=== PATIENT | male | born 1980 | race Caucasian/White ===

== ENCOUNTER 2020-02-23 02:15 | Outpatient (CLI) | payer OTHER, SELFPAY ==
[2020-02-23 18:35] LABS: SARS-CoV-2 RNA PCR Positive
== END 2020-02-23 02:16 | disposition home or self-care (01) ==
LOC: ANHCOVIDDT 02:15
PROVIDERS: PCP Internal Medicine; Visit Provider Surgery
DX: Z01.812 Encounter for preprocedural laboratory examination (principal); U07.1 COVID-19
CPT/HCPCS: 87635; C9803; U0003

== ENCOUNTER 2020-02-26 00:16 | Day surgery (SDC) | payer OTHER, SELFPAY ==
[2020-02-17 14:41] VITALS: BMI 29.2
--- NOTE | 2020-02-25 19:12 | PM.SD ---
Same Day Admit/Disch: HPI History of Present Illness Chief complaint: umbilical hernia Narrative: Lucian Hurley is a 39 year old male with a bulge and discomfort at the umbilicus. Patient had positive COVID PCR test preoperatively. He had symptomatic viral illness which resolved over 30 days ago. Symptoms were mild and included loss of taste and smell. He is taken to surgery now for repair of umbilical hernia. [facility] Surgical History Surgical History (Updated 02/26/20 @ 12:33 by Macho Moeller MD) H/O inguinal hernia repair Family History Family History Unknown Diabetes mellitus Unknown Heart disease Grandparent Malignant neoplasm of prostate Social History Social History Smoking status: Never smoker Tobacco type: cigarettes Alcohol intake: current Alcohol use details: weekends Living arrangements: with family Additional occupation/education comments: [employer] Gender identity (if verbalized by the patient): Male Spiritual care concerns: No Same Day Admit/Disch: Med Pre-admit Medications Home Medications Medication Instructions Recorded Confirmed Type No Home Medications 01/08/20 02/26/20 History hydrocodone-acetaminophen 1 - 2 tablet PO Q6H PRN #7 tablet 02/26/20 Rx ketorolac 10 mg PO Q6H 4 Days #16 tablet 02/26/20 Rx Exam Const: General: comfortable, no acute distress, alert and awake HENMT: Head: normocephalic and atraumatic Mouth: Yes Normal oral and palatal mucosa present Eyes: Conjunctivae: conjunctivae normal Pupils: Equal, round and reactive pupils present EOM: EOMs intact bilaterally Neck: Neck: normal visual inspection, no lymphadenopathy and nontender Resp: Effort & Inspection: normal respiratory effort Auscultation: clear to auscultation bilaterally Cardio: Rate: regular rate Rhythm: regular rhythm Heart sounds: no gallops, no murmurs and no rubs GI: Inspection: non-distended and visible herniation (umbilical) GI Palp: Yes Soft to palpation, Yes Tenderness to palpation present (GI), No Hepatomegaly present, No Splenomegaly present and Yes Hernia present (small reducible umbilical hernia, 6 mm defect) Auscultation: normal bowel sounds Skin: Lesions: no lesions Rashes: no rashes Neuro: General: no focal motor deficits and CN's II-XI intact bilaterally Cranial nerves: Yes Equal, round and reactive pupils present, Yes Bilaterally intact EOM present, Yes facial symmetry and Yes Midline tongue present Speech: normal speech Motor exam (neuro): 5/5 motor strength present throughout and Motor abnormalities not present Extrem: General: no clubbing, cyanosis or edema and edema Psych: Affect: normal affect Thought process: Normal thought process present Insight: Good insight present (Psych) DS: Summary Hospital Course Hospital Course: Patient was able to go home after outpatient surgery. Time Spent with Patient Time attestation: Total time spent providing and/or coordinating discharge services: DS: Admitting Diagnosis Admitting Diagnosis Admitting Diagnosis: Umbilical Hernia--symptomatic, reducible; Plan to proceed with outpatient repair under local/mac anesthesia. DS: Discharge Diagnosis Discharge Diagnosis (1) Umbilical hernia without mention of obstruction or gangrene: Qualifiers: Obstruction and gangrene presence: without obstruction or gangrene Qualified Code(s): K42.9 - Umbilical hernia without obstruction or gangrene Code(s): K42.9 - Umbilical hernia without obstruction or gangrene Status: Chronic Assessment and Plan: Repaired without difficulty (2) Lab test positive for detection of COVID-19 virus: Code(s): U07.1 - COVID-19 Status: Chronic Assessment and Plan: Patient had mild symptoms of COVID which resolved over a month ago.Symptoms included loss of taste and smel
--- NOTE | 2020-02-26 09:50 | WPDHPUPDATE1 ---
History and Physical Update Update Date/Time: 02/26/20 09:50 History and Physical has been reviewed, including an updated exam of the patient. There are NO changes in the patient's condition. Risks, benefits, and alternatives have been discussed and questions answered. Patient agrees to proceed with procedure.
[2020-02-26] MEDS: ACETAMINOPHEN 500 MG TABLET 1000 MG PO (12:18)
[2020-02-26] MEDS: LACTATED RINGERS 1,000 ML 30 ML IV CONT ×2 (12:18→13:55)
[2020-02-26] MEDS: KETOROLAC 15 MG/ML VIAL (*BKC) IV PUSH (12:20)
[2020-02-26 12:31] VITALS: BP 116/68; PULSE 64; RESP 16; TEMP 36.4; O2SAT 99
--- NOTE | 2020-02-26 12:32 | WPDANESEPPF ---
Anes - Initial Pre Proc Eval Procedure: Operation Date: 02/26/20 13:30 Proposed Procedures p Umbilical Hernia Repair - Yariel Michaels MD Date/Time: 02/26/20 12:32 Surgeon: Yariel Michaels MD Pre Op Diagnosis: umbilical hernia Patient Data Age: 39 Gender: M Height: 6 ft Weight: 94.7 kg Allergies Allergy/AdvReac Type Severity Reaction Status Date / Time No Known Allergies Allergy Verified 02/26/20 11:28 Home Medications Medication Instructions Recorded Confirmed Type No Home Medications 01/08/20 02/26/20 History Patient hx anesthesia problems: none Family hx anesthesia problems: none [facility] Surgical History Surgical History (Updated 02/26/20 @ 12:33 by Macho Moeller MD) H/O inguinal hernia repair Family History Family History Unknown Diabetes mellitus Unknown Heart disease Grandparent Malignant neoplasm of prostate Social History Social History Smoking status: Never smoker Tobacco type: cigarettes Alcohol intake: current Alcohol use details: weekends Living arrangements: with family Additional occupation/education comments: [employer] Gender identity (if verbalized by the patient): Male Spiritual care concerns: No Anes - Eval Final PreProcedure Day of Procedure 02/26/20 12:32 Patient weight: overweight Heart: regular rate and rhythm Lungs: clear to auscultation Airway: Mallampati scale class II Neurological: alert and oriented Last oral intake: >/= 8 hours ASA classification: II Emergent: no Anesthetic plan: proceed Anesthesia type and monitoring: general GIVS and standard monitoring Informed Consent: The patient's anesthetic plan and its attendant risks and benefits were discussed with the patient/family/POA. Questions were solicited and answers provided to the satisfaction of the patient/family/POA.
--- NOTE | 2020-02-26 12:36 | PM.PROC ---
Procedure Note - Detailed Date of procedure: 02/26/20 Pre-op diagnosis: umbilical hernia Post-op diagnosis: same Procedure performed: Umbilical hernia repair Description of procedure: Patient was taken to the operating room and IV sedation was administered. Prep and drape was carried out. The proposed incision along the lower margin of the umbilicus was marked on the skin. Local anesthetic was infiltrated into the skin and the deeper subcutaneous tissues. Incision was made and dissection was carried down through the skin and to the hernia sac. The sac was then dissected free from the umbilical skin and the surrounding subcutaneous tissues. It was dissected down to its neck. Additional local anesthetic was infiltrated into the neck and the fascia surrounding the neck of the hernia sac. The sac was then amputated at its neck. The subcutaneous was undermined around the hernia defect. Additional local was infiltrated around the fascia. The hernia defect was closed with [id number] mattress sutures of 0 Ethibond. The umbilical skin was tacked to the fascia with 3 0 Vicryl suture. The subcutaneous was closed with 3 0 Vicryl. Subcuticular interrupted 4 O Vicryl skin stitches were placed. The skin was then closed with running 4 0 Monocryl subcuticular suture. Wound was dressed with Exofin surgical adhesive. The patient was awakened and taken to recovery in good condition. Counts were correct x2. Anesthesia: MAC and local (0.5% Marcaine with Exparel) Surgeon: Yariel Michaels MD Freight Team Associate: Gracie PETERS Estimated blood loss (mL): 5 Drains: No Packing: No Pathology: none sent Complications: None Condition: stable Disposition: same day Findings: 6 millimeter hernia defect
--- NOTE | 2020-02-26 12:49 | SUR.PREOP ---
Up to bathroom.
[2020-02-26] MEDS: ceFAZolin 2 GM/D5W 50 ML 2 GM/50 ML BAG IVPB (12:51)
[2020-02-26 13:55] VITALS: BP 98/54; PULSE 83; RESP 16; O2SAT 92
--- NOTE | 2020-02-26 14:13 | SUR.PHASEII ---
DR. PINEDA CAME TO SEE PT.
[2020-02-26 14:25] VITALS: BP 105/67; PULSE 62; RESP 16; O2SAT 98
[2020-02-26 14:43] VITALS: BP 118/79; PULSE 50; RESP 16
== END 2020-02-26 15:05 | disposition home or self-care (01) ==
PROVIDERS: PCP Internal Medicine; Visit Provider Surgery
PROC: (CPT 49585; principal; 2020-02-26 13:30)
DX: K42.9 Umbilical hernia without obstruction or gangrene (principal)
CPT/HCPCS: 49585; 87635; A9270; C9290; C9803; J0690; J1885; J2250; J2704; J3010; J7120; U0003